=== PATIENT | female | born 1975 | race African-American/Black ===

== ENCOUNTER 2022-05-27 04:18 | Day surgery (SDC) | payer BC ==
[2022-05-25 14:46] VITALS: BMI 26.2
[2022-05-27 09:55] VITALS: TEMP 97.7
[2022-05-27 10:19] VITALS: PULSE 69; RESP 16
[2022-05-27 10:39] VITALS: BP 142/76
== END 2022-05-27 10:40 | disposition home or self-care (01) ==
LOC: JASU-ENDO 04:18
PROVIDERS: ATTEND Internal Medicine Gastroenterology
PROC: 0DJD8ZZ Inspection of Lower Intestinal Tract, Via Natural or Artificial Opening Endoscopic (ICD-10-PCS; principal; 2022-05-27 08:30)
DX: Z12.11 Encounter for screening for malignant neoplasm of colon (principal)
CPT/HCPCS: C9803-CS; U0003; U0005